=== PATIENT | female | born 2000 | race Caucasian/White ===

== ENCOUNTER 2021-07-17 06:30 | Inpatient (IN) | payer MEDICAID ==
[~2021-07-17] VITALS: Ht 149.9 cm; Wt 64.9 kg
[2021-07-17 08:15] VITALS: BP 128/80
--- NOTE | 2021-07-17 08:55 | NUR ---
PATIENT HAS BEEN SCREENED AND CATEGORIZED LOW NUTRITION RISK. PATIENT WILL BE SEEN WITHIN 7 DAYS OF ADMISSION. 07/23/[address]
[2021-07-17] MEDS ORDERED: METHYLERGONOVINE 0.2 MG/ML AMP IM PRN ×2 (09:25→18:55)
[2021-07-17] MEDS ORDERED: CARBOPROST 250 MCG/ML AMP IM PRN (09:25)
[2021-07-17] MEDS: LACTATED RINGERS 1,000 ML IV SCH ×2 (09:29→09:30)
[2021-07-17] MEDS ORDERED: ROPIVACAINE 0.2%/NS PREMIX 200 ML EPI ONE (09:42)
[2021-07-17 10:09] LABS: APPEARANCE,URINE CLEAR (CLEAR); BILIRUBIN,URINE NEGATIVE (NEGATIVE); BLOOD, URINE 1+ (NEGATIVE); COLOR,URINE YELLOW (YELLOW); LEUKOCYTE ESTERASE ,URINE 1+ (NEGATIVE); NITRITE, URINE NEGATIVE (NEGATIVE); UGLUCOSE NEGATIVE (NEGATIVE)
[2021-07-17 10:11] LABS: MEAN CORPUSCULAR VOLUME 89.8 fL (80-94); WHITE BLOOD COUNT (AUTO) 9.5 K/uL (4.8-10.8)
[2021-07-17 10:19] LABS: BASOPHILS % (AUTO) 0.4 % (0.0-2.0); EOSINOPHILS % (AUTO) 0.1 % (0.0-4.0); HEMOGLOBIN 13.4 g/dL (12.0-16.0); LYMPHOCYTES # (AUTO) 1.1 K/uL (2.5-16.5); LYMPHOCYTES % (AUTO) 11.5 % (20.5-51.1); MEAN CORPUSCULAR HEMOGLOBIN 31 pg (27-31); MEAN CORPUSCULAR HGB CONC 34 g/dL (33-37); MONOCYTES # (AUTO) 0.4 K/uL (0.8-1.0); MONOCYTES % (AUTO) 4.3 % (1.7-9.3); NEUTROPHILS # (AUTO) 7.9 K/uL (1.8-7.7); NEUTROPHILS % (AUTO) 83.7 % (42.2-75.2); PLATELET COUNT (AUTO) 207 K/uL (140-450); RED BLOOD CELL COUNT(AUTO) 4.34 MIL/uL (4.20-5.40); RED CELL DISTRIBUTION WIDTH 13.3 % (11.6-13.7)
[2021-07-17] MEDS ORDERED: ROPIVACAINE 0.2%/NS PREMIX 100 ML EPI SCH (10:25)
[2021-07-17 10:33] LABS: CALCIUM OXALATE CRYSTALS,UR None Seen /HPF (None Seen); OTHER CRYSTALS,URINE None Seen /HPF (None Seen); RBC,URINE 0-5 /HPF (0-5); TRICHOMONAS,URINE None Seen /HPF (None Seen); TRIPLE PHOSPHATE CRYSTAL,UR None Seen /HPF (None Seen); URIC ACID CRYSTALS,URINE None Seen /HPF (None Seen); URINE AMORPHOUS URATE None Seen /HPF (None Seen); WBC,URINE 0-5 /HPF (0-5); YEAST,URINE None Seen /HPF (None Seen)
[2021-07-17 10:34] LABS: COARSE GRANULAR CASTS,URINE None Seen /LPF (None Seen); FINE GRANULAR CASTS,URINE None Seen /LPF (None Seen); HYALINE CASTS, URINE None Seen /LPF (None Seen); OTHER CASTS, URINE None Seen /LPF (None Seen); RED BLOOD CELL CASTS,URINE None Seen /LPF (None Seen); WAXY CASTS,URINE None Seen /LPF (None Seen)
[2021-07-17] MEDS ORDERED: OXYTOCIN 20 UNITS/LR PREMIX 1,000 ML IV ONE (12:48)
[2021-07-17] MEDS ORDERED: BENZOCAINE/MENTHOL 20%-0.5% 60 GM CAN TP PRN (18:55)
[2021-07-17] MEDS ORDERED: MEASLES, MUMPS, AND RUBELLA 1 VIAL SQVAC ONE (18:55)
[2021-07-17] MEDS ORDERED: OXYTOCIN 10 UNITS/ML VIAL IM PRN (18:55)
[2021-07-17] MEDS ORDERED: bisacodyL 10 MG SUPP RC PRN (18:55)
[2021-07-17] MEDS ORDERED: METHYLERGONOVINE 0.2 MG TAB PO PRN (18:55)
[2021-07-17] MEDS ORDERED: ACETAMINOPHEN 325 MG TAB PO PRN (20:45)
[2021-07-17] MEDS ORDERED: oxyCODONE/APAP 5/325 MG 1 TAB TAB PO PRN ×2 (22:25)
[2021-07-17] MEDS ORDERED: IBUPROFEN 800 MG TAB PO PRN (22:25)
[2021-07-18 05:46] LABS: HEMATOCRIT 29.1 % (36-48); HEMOGLOBIN 10.1 g/dL (12.0-16.0)
== END 2021-07-19 13:30 | disposition home or self-care (01) | DRG 560 ==
LOC: MLD 06:30 → OBSVTOIN 08:15 → MLD 14:00 → MFCC 20:55
PROVIDERS: ADMIT Obstetrics & Gynecology; ATTEND Obstetrics & Gynecology
PROC: 10D07Z6 Extraction of Products of Conception, Vacuum, Via Natural or Artificial Opening (ICD-10-PCS; principal; 2021-07-18)
PROC: 0W8NXZZ Division of Female Perineum, External Approach (ICD-10-PCS; 2021-07-18)
DX: O76 Abnormality in fetal heart rate and rhythm complicating labor and delivery (principal); Z37.0 Single live birth; R71.0 Precipitous drop in hematocrit; O75.81 Maternal exhaustion complicating labor and delivery; Z3A.38 38 weeks gestation of pregnancy; Z20.822 Contact with and (suspected) exposure to COVID-19
CPT/HCPCS: 36415; 51702; 59409; 81001; 85018; 85025; 86592; 86886; 86900; 86901; 87086; J2590; J2795

== ENCOUNTER 2022-06-26 04:25 | Inpatient (IN) | payer OTHER ==
[~2022-06-26] VITALS: Ht 149.9 cm; Wt 68.0 kg
[2022-06-26] MEDS ORDERED: LACTATED RINGERS 500 ML IV ONE (05:05)
[2022-06-26] MEDS ORDERED: NALBUPHINE 10 MG/ML AMP IVP PRN (05:05)
[2022-06-26] MEDS ORDERED: METHYLERGONOVINE 0.2 MG/ML AMP IM PRN ×2 (05:05→12:35)
[2022-06-26] MEDS ORDERED: AMPICILLIN 2,000 MG in NACL 0.9% MINI-BAG PLUS 100 ML IV SCH (05:05)
[2022-06-26 05:52] LABS: BASOPHILS % (AUTO) 0.4 % (0.0-2.0); EOSINOPHILS % (AUTO) 0.2 % (0.0-4.0); HEMATOCRIT 35.2 % (36-48); HEMOGLOBIN 11.4 g/dL (12.0-16.0); LYMPHOCYTES % (AUTO) 16.4 % (20.5-51.1); MEAN CORPUSCULAR HEMOGLOBIN 26 pg (27-31); MEAN CORPUSCULAR HGB CONC 32 g/dL (33-37); MEAN CORPUSCULAR VOLUME 81.6 fL (80-94); MONOCYTES # (AUTO) 0.8 K/uL (0.8-1.0); MONOCYTES % (AUTO) 6.2 % (1.7-9.3); NEUTROPHILS # (AUTO) 9.4 K/uL (1.8-7.7); NEUTROPHILS % (AUTO) 76.8 % (42.2-75.2); PLATELET COUNT (AUTO) 228 K/uL (140-450); RED BLOOD CELL COUNT(AUTO) 4.31 MIL/uL (4.20-5.40); WHITE BLOOD COUNT (AUTO) 12.2 K/uL (4.8-10.8)
[2022-06-26] MEDS: LACTATED RINGERS 1,000 ML IV SCH ×4 (05:54→14:58)
[2022-06-26 06:00] VITALS: BP 125/75
[2022-06-26 06:04] LABS: PROTHROMBIN TIME 9.3 secs (10.8-13.4)
[2022-06-26 06:08] LABS: ALBUMIN 2.9 g/dL (3.4-5.0); ANION GAP 15.9 (8-16); CARBON DIOXIDE 21.9 mmol/L (21-32); CREATININE 0.5 mg/dL (0.6-1.3); POTASSIUM 3.8 mmol/L (3.5-5.1); TOTAL BILIRUBIN 0.6 mg/dL (0.0-1.0)
[2022-06-26 06:10] LABS: APPEARANCE,URINE CLEAR (CLEAR); BILIRUBIN,URINE NEGATIVE (NEGATIVE); BLOOD, URINE 2+ (NEGATIVE); COLOR,URINE YELLOW (YELLOW); LEUKOCYTE ESTERASE ,URINE TRACE (NEGATIVE); NITRITE, URINE NEGATIVE (NEGATIVE); UGLUCOSE NEGATIVE (NEGATIVE)
[2022-06-26 06:33] LABS: BARBITURATE, URINE NEGATIVE ng/ml (NEG <=200); BENZODIAZEPINE, URINE NEGATIVE ng/mL (NEG <=200); CANNABINOID, URINE NEGATIVE ng/mL (NEG <=50); COCAINE, URINE NEGATIVE ng/mL (NEG <=300); OPIATE, URINE NEGATIVE ng/mL (NEG <=2000); PHENCYCLIDINE SCREEN,URINE NEGATIVE ng/mL (NEG <=25)
[2022-06-26 06:37] LABS: RBC,URINE 11-20 (MOD) /HPF (0-5)
[2022-06-26] MEDS ORDERED: AMPICILLIN 2,000 MG VIAL ONE (06:45)
[2022-06-26] MEDS ORDERED: AMPICILLIN 1,000 MG in NACL 0.9% MINI-BAG PLUS 50 ML IV SCH (08:00)
[2022-06-26] MEDS ORDERED: fentaNYL citrate 0.05 MG/ML VIAL ONE (08:18)
[2022-06-26] MEDS ORDERED: ROPIVACAINE 0.2%/NS PREMIX 200 ML EPI ONE (08:18)
[2022-06-26] MEDS ORDERED: OXYTOCIN 20 UNITS/LR PREMIX 1,000 ML IV ONE ×2 (09:10→13:51)
[2022-06-26] MEDS ORDERED: oxyCODONE/APAP 5/325 MG 1 TAB TAB PO PRN ×2 (12:35)
[2022-06-26] MEDS ORDERED: METHYLERGONOVINE 0.2 MG TAB PO PRN (12:35)
[2022-06-26] MEDS ORDERED: TEMAZEPAM 15 MG CAP PO PRN (12:35)
[2022-06-26] MEDS ORDERED: OXYTOCIN 10 UNITS/ML VIAL IM PRN (12:35)
[2022-06-26] MEDS ORDERED: BENZOCAINE/MENTHOL 20%-0.5% 60 GM CAN TP PRN (12:35)
[2022-06-26] MEDS ORDERED: IBUPROFEN 800 MG TAB PO PRN (12:35)
[2022-06-26] MEDS ORDERED: OXYTOCIN 20 UNITS in LACTATED RINGERS 1,000 ML IV SCH (13:50)
[2022-06-26 14:55] LABS: BASOPHILS % (AUTO) 0.1 % (0.0-2.0); EOSINOPHILS % (AUTO) 0.1 % (0.0-4.0); HEMATOCRIT 23.5 % (36-48); HEMOGLOBIN 7.6 g/dL (12.0-16.0); LYMPHOCYTES # (AUTO) 0.7 K/uL (2.5-16.5); MEAN CORPUSCULAR HEMOGLOBIN 27 pg (27-31); MEAN CORPUSCULAR HGB CONC 32 g/dL (33-37); MEAN CORPUSCULAR VOLUME 82.7 fL (80-94); MONOCYTES # (AUTO) 0.8 K/uL (0.8-1.0); MONOCYTES % (AUTO) 5.7 % (1.7-9.3); NEUTROPHILS # (AUTO) 12.7 K/uL (1.8-7.7); NEUTROPHILS % (AUTO) 89.1 % (42.2-75.2); PLATELET COUNT (AUTO) 187 K/uL (140-450); RED BLOOD CELL COUNT(AUTO) 2.84 MIL/uL (4.20-5.40); RED CELL DISTRIBUTION WIDTH 14.7 % (11.6-13.7); WHITE BLOOD COUNT (AUTO) 14.3 K/uL (4.8-10.8)
[2022-06-26] MEDS ORDERED: DOCUSATE SOD/SENNA 50/8.6 MG 1 TAB PO SCH (21:00)
[2022-06-27 06:30] LABS: HEMATOCRIT 27.1 % (36-48); HEMOGLOBIN 9.1 g/dL (12.0-16.0)
--- NOTE | 2022-06-28 09:08 | NUR ---
PATIENT HAS BEEN SCREENED AND CATEGORIZED LOW NUTRITION RISK. PATIENT WILL BE SEEN WITHIN 7 DAYS OF ADMISSION. 06/26/22-07/03/[address]
== END 2022-06-28 12:25 | disposition home or self-care (01) | DRG 560 ==
LOC: MLD 04:25 → OBSVTOIN 05:01 → MFCC 09:57
PROVIDERS: ADMIT Obstetrics & Gynecology; ATTEND Obstetrics & Gynecology
PROC: 10D07Z6 Extraction of Products of Conception, Vacuum, Via Natural or Artificial Opening (ICD-10-PCS; principal; 2022-06-26)
PROC: 0HQ9XZZ Repair Perineum Skin, External Approach (ICD-10-PCS; 2022-06-26)
PROC: 30233N1 Transfusion of Nonautologous Red Blood Cells into Peripheral Vein, Percutaneous Approach (ICD-10-PCS; 2022-06-26)
DX: O76 Abnormality in fetal heart rate and rhythm complicating labor and delivery (principal); Z37.0 Single live birth; R71.0 Precipitous drop in hematocrit; O70.0 First degree perineal laceration during delivery; Z20.822 Contact with and (suspected) exposure to COVID-19; Z3A.38 38 weeks gestation of pregnancy
CPT/HCPCS: 36415; 51702; 80053; 80305; 81001; 85018; 85025; 85610; 85730; 86592; 86762; 86886; 86900; 86901; 86920; 87086; 87340; 87653-90; 90715; J0290; J2210; J2300; J2590; J2795; J3010; J7120; P9016